=== PATIENT | female | born 1980 | race Caucasian/White ===

== ENCOUNTER 2019-03-11 07:48 | Emergency (ER) | payer SELFPAY ==
[2019-03-11 07:56] VITALS: BP 105/54; PULSE 110; RESP 20; TEMP 37.2; O2SAT 98
--- NOTE | 2019-03-11 08:16 | ED.GENADUL_ITS ---
Discharge Plan Disposition Patient Disposition: HOME Condition: Stable Discharge Details Chief Complaint: RespSymp Clinical Impression: URI (upper respiratory infection) Primary Care Provider: None,None ED Provider: Neo Whitfield Discharge Instructions Instructions: Upper Respiratory Infection (ED) Additional Instructions: Please use [id number] cough and cold medications such as Tylenol Cold and flu severe, Cepacol's medicated throat drops, or other symptomatic medications. Just take as directed on packaging. Return to the emergency department immediately for any inability to manage secretions, difficulty breathing, or further concerns. Otherwise you should go to community connections to establish insurance along with primary care follow-up if not improving Stand Alone Forms: Work Release Referrals: Primary Care Provider [Outside] (Please go to community connections to help establish primary care provider follow-up) Medical Decision Making Patient presenting to the emergency department for chief complaint of sore throat. She states that this started on Sunday and has caused some coughing due to dry throat irritation. Patient denies any chest congestion, nasal mati estion earache. She does state that she took Motrin yesterday which mildly helped. She does have to call out of work and is concerned about going back to work due to not feeling well. Physical exam shows a significantly erythematous posterior oropharynx with no tonsillary edema or exudates, submandibular and anterior cervical lymphadenopathy is noted but otherwise clear lung sounds, normal TMs, no nasal congestion, patient does have tachycardia otherwise normal cardiac exam. patient is nontoxic, but does appear moderately ill peer . Patient is very tearful and discussing testing and treatments as she states that she does not have any insurance or money to pay. 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 Patient was agreeable to rapid strep testing given work environment and mostly isolated sore throat. At this time she would prefer not to have IV fluids and further labs for also question of possible mononucleosis. Patient given oral hydration pending results. Rapid strep test was negative. Patient again was reassessed and shows no emergent airway or upper respiratory findings. With reexamination though I did hear some significant nasal congestion. Due to this I do feel that patient has upper respiratory tract infection. Patient is afebrile and again otherwise stable. Again patient states concern over cost and given no emergent findings I feel that we can take an initial conservative approach towards treatment. Discussed [id number]-ponazra therapies, significant hydration, and rest. Patient given work note and strict return precautions were discussed. HPI General Mode of arrival: ambulatory . Date/Time Provider Initiated Documentation: 03/11/19 07:49 . Limitations to Documentation: no limitations . Information obtained by: patient and RN notes reviewed . History of Present Illness 38 year old F presents to the emergency department with the chief complaint of sore throat, cold symptoms , described as severe, with intensity rated at 8. Quality is described as aching and sharp, and is localized to the mouth (sore throat). Patient started experiencing this day(s) (4) and it has been constant. No relieving factors improve symptom(s), No exacerbating factors reported . Patient did receive the following treatments prior to arrival, NSAID Related Data Allergies Allergy/AdvReac Type Severity Reaction Status Date / Time diazepam AdvReac vomiting/black Unverified 03/11/19 07:58 out hydrocodone AdvReac vomiting/b Unverified 03/11/19 07:58 lackout General Stated Complaint: RespSymp CORAL: 3 Review of Systems Constitutional Reports body ache(s), Reports chills, Reports fever(s), Denies headache(s) and Reports malaise ENT Reports as per HPI, Denies dysphagia, Denies otalgia, Denies headache(s), Reports hoarseness, Denies lip swelling, Denies mouth lesions, Denies nasal congestion, Reports odynophagia, Reports sore throat, Denies throat swelling and Denies tongue swelling Cardiovascular Denies chest pain Respiratory Denies chest congestion and Reports cough Gastrointestinal Denies dysphagia and Reports odynophagia Neurologic Denies headache(s) Allergic/Immunologic Denies lip swelling, Denies throat swelling and Denies tongue swelling [facility] Social History Smoking/Tobacco Use Status: Current every day Alcohol Intake: never Substance use type: does not use Do you feel safe at home: Yes Do you feel safe in your relationship?: Yes Exam Const General: cooperative, healthy appearing, comfortable, no acute distress and not ill appearing Orientation: alert, awake and oriented x3 HENMT Head: normal to inspection and normocephalic Ears: hearing grossly normal bilaterally, external ears normal, TM's normal bilaterally and mastoids normal General nose exam: external nose normal and nares normal Mouth: oral mucosae normal, lip normal, tongue normal, audible dysphonia (Hoarse voice), no drooling, no muffled voice and no trismus Throat: uvula midline, abnormal tonsil bilaterally erythema; no exudates and no hypertrophy and no peritonsillar masses Neck Neck: normal visual inspection, full ROM, no meningeal signs and lymphadenopathy (Submandibular, anterior cervical lymphadenopathy) Resp Effort & Inspection: normal respiratory effort, able to speak in complete sentences and no stridor Auscultation: clear to auscultation bilaterally Cardio Rate: regular rate Rhythm: regular rhythm Heart Sounds: S1 normal and S2 normal Skin General skin exam: no rashes or lesions noted Course Vital Signs Temperature 37.2 C 03/11/19 07:56 Pulse 110 H 03/11/19 07:56 Respiratory Rate 20 03/11/19 07:56 Blood Pressure 105/54 L 03/11/19 07:56 Pulse Oximetry 98 03/11/19 07:56 Temperature 37.2 C 03/11/19 07:56 Temperature Source Temporal Artery Scan 03/11/19 07:56 Pulse 110 H 03/11/19 07:56 Respiratory Rate 20 03/11/19 07:56 Respiratory Effort Non-Labored 03/11/19 07:56 Blood Pressure 105/54 L 03/11/19 07:56 Pulse Oximetry 98 03/11/19 07:56 Oxygen Delivery Method Room Air 03/11/19 07:56 Oxygen Flow Rate 0 03/11/19 07:56 Pain Level 6 03/11/19 07:56
[2019-03-11 19:06] VITALS: BP 105/54; PULSE 110; RESP 20; TEMP 37.2; O2SAT 98
== END 2019-03-11 08:55 | disposition home or self-care (01) ==
PROVIDERS: Emergency Provider Nurse Practitioner Family
DX: J06.9 Acute upper respiratory infection, unspecified (principal); F17.210 Nicotine dependence, cigarettes, uncomplicated
CPT/HCPCS: 87880; 99282

== ENCOUNTER 2019-04-13 21:14 | Emergency (ER) | payer MEDICAID, SELFPAY ==
[2019-04-13 21:30] VITALS: BP 107/61; PULSE 85; RESP 20; TEMP 37; O2SAT 98
--- NOTE | 2019-04-13 21:46 | ED.GENADUL_ITS ---
Discharge Plan Disposition Patient Disposition: HOME Condition: Improving Discharge Details Chief Complaint: Headache Clinical Impression: Cephalalgia Primary Care Provider: None,None ED Provider: Clement Rondon Home Meds and New Rx's Prescriptions: New doxycycline hyclate 100 mg capsule 100 mg PO BID 14 Days Qty: 28 RF: 0 Discharge Instructions Instructions: General Headache (ED) Additional Instructions: Our care management team will arrange an outpatient follow-up for you. As we discussed, we will empirically treat you for tickborne illness with a course of doxycycline. May use ibuprofen as needed for discomfort. Small, frequent sips of fluids to maintain hydration. Home to rest this evening. Return for any acute concern Stand Alone Forms: Work Release Medical Decision Making 38-year-old female with a day and a half of headache. It was preceded by a viral-like syndrome with fever, chills, body ache. Differential diagnosis would include tickborne illness, viral syndrome, dehydration, migraine headache. Temp 37, pulse 85, blood pressure 171/60. She has a nonfocal neurologic examination. IV placed, labs obtained, patient given fluids, parenteral medications. Of note she has a normal CBC, her AST is elevated at 72, ALT 138, alk phos 276. Total bili 0.6. Given the mild hepatitis, would consider tickborne illness and tick panel ordered. Discussed with her consideration of lumbar puncture, which she will decline and defer at this time. The patient had fairly significant improvement of her discomfort following medications. Discussed with her that I would elect to treat empirically with a course of doxycycline for tickborne illness. We will arrange for her to have a follow-up in the outpatient setting through care management. She understands the plan of care as well as home care, follow-up, return instructions. HPI General Mode of arrival: ambulatory . Date/Time Provider Initiated Documentation: 04/13/19 21:37 . Limitations to Documentation: no limitations . Information obtained by: patient . History of Present Illness 38 year old F presents to the emergency department with the chief complaint of Headache., described as moderate, Quality is described as dull and constant, and is localized to the head. Patient reports no radiation. Patient started experi encing this hour(s) and it has been constant. No relieving factors improve symptom(s), Other factors that worsen symptoms (Sensitive to) . Patient notes other (Nauseated. Had fever and chills earlier in the week. Muscles feel tense). Patient did receive the following treatments prior to arrival, NSAID Related Data Home Medications Medication Instructions Recorded Confirmed doxycycline hyclate 100 mg PO BID 14 Days #28 cap 04/13/19 Previous Rx's Medication Instructions Recorded doxycycline hyclate 100 mg PO BID 14 Days #28 cap 04/13/19 Allergies Allergy/AdvReac Type Severity Reaction Status Date / Time aspirin AdvReac Mild upset Unverified 04/13/19 21:36 stomach diazepam AdvReac vomiting/black Unverified 03/11/19 07:58 out hydrocodone AdvReac vomiting/b Unverified 03/11/19 07:58 lackout General Stated Complaint: Headache CORAL: 2 Review of Systems Review of Systems 6 systems reviewed and otherwise neg [facility] Social History Smoking/Tobacco Use Status: Current every day Alcohol Intake: never Substance use type: does not use Do you feel safe at home: Yes Do you feel safe in your relationship?: Yes Exam Narrative Exam Narrative: GEN: awake, alert, oriented 3. Pleasant, well groomed, interactive. Lying in a darkened room peer HEAD: Normocephalic, atraumatic ENT: Mucous membranes moist, oropharynx unremarkable, External ear exam unremarkable EYES: PERRL, EOMI NECK: Full ROM, no skin MICHELLE, bilateral paraspinous musculature is tender and tense. CHEST/RESP: Nontender, clear to auscultation bilateral, no wheeze/rhonchi/rales CARDIOVASCULAR: RRR, no murmur, rub alina. 2+ Rad pulse bilateral ABDOMEN: Soft, nontender, no mass. +Bowel sounds EXT: Full ROM, no edema, no rash Neuro: Grossly normal neurologic exam, conversant, interactive. Psych: Speech fluent, thoughts congruent, affect normal Course Vital Signs Temperature 37 C 04/13/19 21:30 Pulse 85 04/13/19 21:30 Respiratory Rate 20 04/13/19 21:30 Blood Pressure 107/61 04/13/19 21:30 Pulse Oximetry 98 04/13/19 21:30 Temperature 37 C 04/13/19 21:30 Temperature Source Temporal Artery Scan 04/13/19 21:30 Pulse 85 04/13/19 21:30 Respiratory Rate 20 04/13/19 21:30 Respiratory Effort Non-Labored 04/13/19 21:30 Blood Pressure 107/61 04/13/19 21:30 Blood Pressure Position Sitting 04/13/19 21:30 Pulse Oximetry 98 04/13/19 21:30 Oxygen Delivery Method Room Air 04/13/19 21:30 Oxygen Flow Rate 0 04/13/19 21:30 Pain Level 6 04/13/19 21:30
[2019-04-13] MEDS: Normal Saline 1,000 ML 1000 ML IV (22:05)
[2019-04-13] MEDS: Ondansetron 4 MG/2 ML VIAL IVP (22:07)
[2019-04-13] MEDS: Dexamethasone 10 MG/ML VIAL IVP (22:09)
[2019-04-13] MEDS: Ketorolac 30 MG/ML VIAL IVP (22:12)
[2019-04-13] MEDS: MAGNESIUM SULFATE 1 GM/100 ML BAG IVPB (22:15)
[2019-04-13 22:22] LABS: Abs Immature Grans 0.03 k/cumm (0.0-0.09); Absolute Basophil Count 0.02 k/cumm (0.0-0.2); Absolute Eosinophil Count 0.08 k/cumm (0.0-0.7); Absolute Lymphocyte Count 1.62 k/cumm (1.2-3.4); Absolute Monocyte Count 0.95 k/cumm (0.11-0.7); Absolute Neutrophil Count 6.76 k/cumm (1.2-6.7); Basophils % 0.2; Eosinophils % 0.8; HCT 40.7 % (36.0-46.0); HGB 14.1 g/dL (12.0-15.5); Immature Grans % 0.3; Lymphocytes % 17.1; Mean Corp. HGB Concentration 34.6 g/dL (32.0-36.0); Mean Corpuscular Hemoglobin 32.5 pg (27.0-33.0); Mean Corpuscular Volume 93.8 fL (80-95); Mean Platelet Volume 10.6 fL (8.0-11.0); Neutrophils % 71.6; Platelet Count 194 x1000/uL (130-400); RBC 4.34 m/cumm (4.00-5.20); RBC Distribution Width 13.2 % (11.7-14.6); White Blood Cell Count 9.46 k/cumm (4.4-10.8)
[2019-04-13 22:39] LABS: ALT 138 U/L (12-78); AST 72 U/L (15-37); Albumin 3.1 g/dL (3.4-5.0); Alkaline Phosphatase 276 U/L (46-116); Anion Gap 10.7 mmol/L (3-11); BUN 18 mg/dL (7-18); Bilirubin, Total 0.6 mg/dL (0.2-1.0); CO2 26.3 mmol/L (21.0-32.0); CREATININE 0.92 mg/dL (0.55-1.02); Calcium 8.7 mg/dL (8.5-10.1); Chloride 102 mmol/L (98-107); Glucose 90 mg/dL (70-100); Potassium 3.8 mmol/L (3.5-5.1); Sodium 139 mmol/L (136-145)
[2019-04-13] MEDS: Doxycycline Hyclate 100 MG CAP PO (23:44)
[2019-04-13 23:49] VITALS: BP 128/89; PULSE 78; RESP 16; TEMP 36.5; O2SAT 98
[2019-04-15 17:15] LABS: Anaplasma phagocytophilum Negative (Negative); B. miyamotoi PCR Negative (Negative); Babesia divergens/MO-1 Negative (Negative); Babesia duncani Negative (Negative); Babesia microti Negative (Negative); Ehrlichia chaffeensis Negative (Negative); Ehrlichia ewingii/canis Negative (Negative); Ehrlichia muris eauclairensis Negative (Negative)
[2019-04-17 13:53] LABS: Lyme Ab w Rflx to Lyme Confirm Equivocal
[2019-04-18 14:04] LABS: IgG Band(s) SEE COMMENTS kDa; IgG Immunoblot Negative; IgM Immunoblot Positive; Immunoblot Interpretation SEE COMMENTS
== END 2019-04-13 23:50 | disposition home or self-care (01) ==
PROVIDERS: Emergency Provider Emergency Medicine
DX: R51 Headache (principal); B19.9 Unspecified viral hepatitis without hepatic coma
CPT/HCPCS: 36415; 80053; 86617; 87798; 96361; 96374; 96375; 99284; 85025; 86618; J1100; J1885; J2405; J3475

== ENCOUNTER 2019-07-04 12:32 | Emergency (ER) | payer MEDICAID, SELFPAY ==
[2019-07-04 12:41] VITALS: BP 113/73; PULSE 81; RESP 16; TEMP 36.6; O2SAT 98
--- NOTE | 2019-07-04 12:55 | ED.GENADUL_ITS ---
Discharge Plan Disposition Patient Disposition: HOME Condition: Stable Discharge Details Chief Complaint: GenMedical Clinical Impression: Depression Primary Care Provider: None,None ED Provider: Clement Rondon Discharge Instructions Instructions: Depression (ED) Additional Instructions: Please follow-up with outpatient mental health services as discussed with [facility] human services. 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 Please take antibiotics as prescribed. Return for any change to mood or any acute concern. Stand Alone Forms: Work Release Medical Decision Making 38-year-old female presents from work with worsening depressive symptoms over weeks time, she is become tearful with poor sleep, denies thoughts of hurting herself or others. She was referred by [facility]. She will note that she was unable to follow-up on tickborne panel that was taken on April 13 which positive for Borrelia for which she was empirically treated at that time.. She denies any new symptoms. Medical screen examination performed otherwise unremarkable. Patient evaluated by mental health worker, plan for outpatient care established. She is stable and appropriate for trial of outpatient management. HPI General Mode of arrival: ambulatory . Date/Time Provider Initiated Documentation: 07/04/19 12:49 . Limitations to Documentation: no limitations . Information obtained by: patient . History of Present Illness 38 year old F presents to the emergency department with the chief complaint of Depression, tearful, follow-up Lyme results from the summer, described as moderate, Quality is described as constant, Patient started experiencing this day(s) and it has been constant. No relieving factors improve symptom(s), No exacerbating factors reported . Patient notes no other symptoms.. Patient did receive the following treatments prior to arrival, none Related Data Allergies Allergy/AdvReac Type Severity Reaction Status Date / Time aspirin AdvReac Mild upset Unverified 04/13/19 21:36 stomach diazepam AdvReac vomiting/black Unverified 03/11/19 07:58 out hydrocodone AdvReac vomiting/b Unverified 03/11/19 07:58 lackout General Stated Complaint: GenMedical CORAL: 4 Review of Systems Review of Systems Narrative: Denies stress, no suicidality. [facility] Social History Smoking/Tobacco Use Status: Current every day Alcohol Intake: never Substance use type: does not use Do you feel safe at home: Yes Do you feel safe in your relationship?: Yes Exam Narrative Exam Narrative: GEN: awake, alert, oriented 3. Pleasant, well groomed, interactive, tearful HEAD: Normocephalic, atraumatic ENT: Mucous membranes moist, oropharynx unremarkable, External ear exam unremarkable EYES: PERRL, EOMI NECK: Full ROM, no MICHELLE, no menigismus CHEST/RESP: Nontender, clear to auscultation bilateral, no wheeze/rhonchi/rales CARDIOVASCULAR: RRR, no murmur, rub alina. 2+ Rad pulse bilateral ABDOMEN: Soft, nontender, no mass. +Bowel sounds EXT: Full ROM, no edema, no rash Neuro: Grossly normal neurologic exam, conversant, interactive. Psych: Speech fluent, thoughts congruent, affect depressed and tearful Course Vital Signs Vital signs: Vital Signs Temperature 36.6 C 07/04/19 12:41 Pulse 81 07/04/19 12:41 Respiratory Rate 16 07/04/19 12:41 Blood Pressure 113/73 07/04/19 12:41 Pulse Oximetry 98 07/04/19 12:41 Temperature 36.6 C 07/04/19 12:41 Temperature Source Temporal Artery Scan 07/04/19 12:41 Pulse 81 07/04/19 12:41 Respiratory Rate 16 07/04/19 12:41 Blood Pressure 113/73 07/04/19 12:41 Blood Pressure Position Sitting 07/04/19 12:41 Pulse Oximetry 98 07/04/19 12:41 Oxygen Delivery Method Room Air 07/04/19 12:41 Oxygen Flow Rate 0 07/04/19 12:41 Pain Level 0 07/04/19 12:41
[2019-07-04 13:25] VITALS: RESP 18
[2019-07-04 15:51] VITALS: BP 113/73; PULSE 81; RESP 18; TEMP 36.6; O2SAT 98
== END 2019-07-04 15:53 | disposition home or self-care (01) ==
PROVIDERS: Emergency Provider Emergency Medicine
DX: F32.9 Major depressive disorder, single episode, unspecified (principal)
CPT/HCPCS: 99284

== ENCOUNTER 2020-12-07 15:32 | Outpatient (REF) | payer MEDICAID, SELFPAY ==
[2020-12-07 14:05] LABS: Anion Gap 6.9 mmol/L (3-11); BUN 14 mg/dL (7-18); CO2 26.1 mmol/L (21.0-32.0); CREATININE 0.8 mg/dL (0.55-1.02); Chloride 107 mmol/L (98-107); Glucose 90 mg/dL (74-106); Potassium 4.6 mmol/L (3.5-5.1); Sodium 140 mmol/L (136-145); TSH (W/Ref FT4) 1.28 uIU/mL (0.36-3.74)
[2020-12-07 14:32] LABS: Abs Immature Grans 0.02 10^3/uL (0.0-0.06); Absolute Basophil Count 0.03 10^3/uL (0.0-0.2); Absolute Eosinophil Count 0.07 10^3/uL (0.0-0.7); Absolute Lymphocyte Count 1.96 10^3/uL (1.2-3.4); Absolute Neutrophil Count 5.82 10^3/uL (1.2-6.7); Basophils % 0.4; Eosinophils % 0.8; HCT 43.5 % (36.0-46.0); HGB 14.5 g/dL (11.2-15.7); Immature Grans % 0.2; Lymphocytes % 23.6; MCH 32.1 pg (27.0-33.0); MCHC 33.3 % (32.0-36.0); MCV 96.2 fL (80-95); MPV 10.2 fL (8.0-11.0); Monocytes % 4.8; Neutrophils % 70.2; Nucleated RBC 0 %; Platelet Count 280 10^3/uL (130-400); RBC 4.52 10^6/uL (3.93-5.22); RDW 11.9 % (11.7-14.6); RDW-SD 42.2 fL
[2020-12-07 21:57] LABS: Estradiol 30 pg/mL (See Note)
== END 2020-12-07 15:33 | disposition home or self-care (01) ==
LOC: NCHCN 15:32
PROVIDERS: PCP Nurse Practitioner Family; Visit Provider Family Medicine
DX: R53.83 Other fatigue (principal); Z90.710 Acquired absence of both cervix and uterus
CPT/HCPCS: 80048; 82670; 84443; 85025

== ENCOUNTER 2020-12-14 02:02 | Outpatient (CLI) | payer MEDICAID, SELFPAY ==
--- NOTE | 2020-12-14 | DI.US_ITS ---
EXAM: US THYROID CLINICAL HISTORY: THYROMEGALY, E01.0. TECHNIQUE: Ultrasound thyroid performed using standard protocol. COMPARISON: No exams were available for comparison FINDINGS: ISTHMUS: 2 mm RIGHT LOBE: Size: 6.4 x 2.1 x 2.6 cm Echogenicity: Normal. Vascularity: Normal. Nodules: There is a solid hypoechoic nodule in the midpole measuring 1 x 0.9 x 1.2 cm. It has smooth margins and no echogenic foci. This is consistent with a TI-RADS level 4 nodule. There is a 2nd mi xed composition nodule in the lower pole of the right lobe measuring 2.6 x 2 x 1.9 cm. It is mainly isoechoic with smooth margins and no echogenic foci. This is consistent with a TI-RADS level 2 nodul e. LEFT LOBE: Size: 7.2 craniocaudad by 4.4 transverse by 3.6 AP cm Echogenicity: Normal. Vascularity: Normal. Nodules: There is a nodule of mixed cystic and solid composition which is mainly isoechoic and measur es 6.1 craniocaudad by 4.4 transverse by 3.6 AP cm. This is consistent with a TI-RADS level 2 nodule OTHER FINDINGS: None. IMPRESSION: Multinodular thyroid gland. DATA REPOSITORY:
== END 2020-12-14 02:22 ==
PROVIDERS: PCP Nurse Practitioner Family; Visit Provider Family Medicine
DX: E01.0 Iodine-deficiency related diffuse (endemic) goiter (principal); E04.2 Nontoxic multinodular goiter
CPT/HCPCS: 76536

== ENCOUNTER 2021-02-17 01:15 | Outpatient (CLI) | payer MEDICAID, SELFPAY ==
--- NOTE | 2021-02-17 | DI.US_ITS ---
Exam(s) US NEEDLE LOCAL OTHER WO RAD EXAM: US NEEDLE LOCAL OTHER WO RAD CLINICAL HISTORY: MULTI NODULAR THYROID, E04.2, ULTRASOUND GUIDED FINE NEEDLE ASPIRATION. COMPARISON: US US THYROID from 12/14/2020 was reviewed. TECHNIQUE: Ultrasound guidance was provided by the fish technologist for FNA of a left thyroid nodule. Radiologist not present. The supplied four images are of the right lobe.. There are no left lobe images. Apparently the alex ent terminated the examination after a single past in the left lobe and technologist informs me that left-sided images were not obtained/documented. FINDINGS: As above. IMPRESSION: Ultrasound provided for left thyroid nodule FNA, as described above. DATA REPOSITORY:
--- NOTE | 2021-02-17 07:45 | PAPNONF_PTH ---
PATIENT: Ozzy Rosales LOC: [facility] U#:[id number] AGE/SX: 40/F ROOM: RE02/17/[address]: Angel Grimes MD : [id number] BED: DIS: 02/17/2021 SPEC #: [id number] RECD: 02/17/21 12:46 STATUS: SERA REGail #: [id number] ABDI: 02/17/21 07:[address]: Angel Grimes DEPT: [facility] Cytology RECD BY: Viv Whitten ENTERED: 02/17/21 12:47 SP TYPE: ZEB MEANS DR: Antelmo Denney Tissues: 1 - BODY FLUID CYTO-FINE NEEDLE ASPIRATE-[facility] Procedures: BODY FLUID CYTO-FINE NEEDLE ASPIRATE-[facility] Comments: [id number]
--- NOTE | 2021-02-17 08:15 | W.PROCNOTE ---
Procedure Note After obtaining written consent from the patient, the patient was positioned in a supine position and prepped and draped in appropriate fashion. The ultrasound probe was used to reimage the 2 nodules on the right and the left nodule on the left. There had been no change. 1% lidocaine with 1/100,000 epinephrine was infiltrated the skin, subcutaneous tissues, and tissues overlying the thyroid on the left. A 25-gauge 1.5 inch needle was then advanced into the thyroid nodule. The patient stated that this was unbearably uncomfortable, and refused to allow any further attempts at biopsy. As such, the small amount of aspirate obtained on the first pass was placed into CytoLyt and sent to pathology. I explained to the patient that without adequate biopsy, we could not be sure of the pathology. She expressed understanding but did not feel she could tolerate any further biopsies. The wound was inspected for relative hemostasis, and then a sterile dressing applied. The patient was able to ambulate afterwards without difficulty.
== END 2021-02-17 01:35 ==
PROVIDERS: PCP Family Medicine; Visit Provider Otolaryngology
DX: E04.2 Nontoxic multinodular goiter (principal); R89.6 Abnormal cytological findings in specimens from other organs, systems and tissues
CPT/HCPCS: 10005; 76942; 88104

== ENCOUNTER 2021-03-07 10:23 | Emergency (ER) | payer MEDICAID, SELFPAY ==
[2021-03-07 10:30] VITALS: BP 124/62; PULSE 86; RESP 20; TEMP 36.5; O2SAT 99
--- NOTE | 2021-03-07 10:42 | W.ED.GENAD ---
Discharge Plan Disposition Patient Disposition: HOME Condition: Stable Discharge Details Clinical Impression: Multinodular thyroid Primary Care Provider: Antelmo Denney ED Provider: Ann-Marie Bryan Home Meds and New Rx's Prescriptions: Continued venlafaxine 150 mg capsule,extended release 24hr 150 mg PO DAILY RF: 0 Discharge Instructions Instructions: Thyroid Goiter (ED) Additional Instructions: Your sore throat and symptoms are likely associated with a large nodule which ENT at [facility] feels most consistent with a goiter. You will need follow-up with ENT at [facility] for acute continued management and likely thyroidectomy. Please follow-up with them in the next week for reevaluation. If you develop difficulty breathing, inability stay hydrated, difficulty swallowing or other new/worsening symptoms please seek care urgently once again. Otherwise, you may use Tylenol and/or ibuprofen as needed for comfort. Referrals: Antelmo Denney MD [Primary Care Provider] - Angel Grimes MD [[facility] STAFF PHYSICIAN] - Discharge Data Discharge Date/Time-TO BE ENTERED AT DEPARTURE: 03/07/21 14:57 Medical Decision Making Patient is a pleasant 40-year-old female presenting today with chief complaint of throat swelling. States that she has pain with swallowing. No difficulty breathing. No fevers or chills. Patient reports that she was recently seen by Dr. Grimes with ENT and has thyroid biopsy for thyroid nodule. Patient also reports that she has had poor dentition and has chronic pain of her dentition but no acute change in this. On exam, patient appears nontoxic. She appears well hydrated. No abnromality in posterior oropharynx. Poor dentition but no obvious evidence of acute dental infection. Handling secretions well. She has fullness to her thyroid. Structures feel midline. No crepitus. Lungs clear. No stridor. No lymphadenopathy. Reviewed pathology from biopsy dated 02/17/2021. At that time the diagnosis comment was in an otherwise unsatisfactory aspirate, there is a very rare group of poorly preserved but atypical follicular cells with oval nuclei irregular nuclear membranes and nuclear grooves. The background consists of proteinaceous debris and few sites. Suggest repeat fine-needle aspiration with onset evaluation and possible Afirma testing.. Concerned that this may be enlarging. Rapid stress testing negative. Will obtain CT of neck. Will also obtain baseline labs and monospot testing for other possible sources of symptoms. Patient given IV acetaminophen, reports feeling improved. FINDINGS: Nasopharynx: Unremarkable. Oropharynx: Unremarkable. No significant tonsillar enlargement. Hypopharynx: Unremarkable. Larynx: Unremarkable. Normal epiglottis. Retropharyngeal space: Unremarkable. Submandibular/Parotid glands: Normal. Glands are normal in size. Thyroid: Inhomogeneous left thyroid nodule 6 x 4 x 3.6 cm. There is a subcentimeter focus of calcification associated with the nodule and the nodule displaces the trachea to the right. In right thyroid there is a similar nodule measuring about 2.1 x 1.9 x 2.2 cm. Lymph nodes: Unremarkable. No lymphadenopathy. Trachea: Mildly narrowed at the point where there is mass effect from the right thyroid nodule. Lungs: Unremarkable as visualized. Bones/joints: Disc space narrowing and degenerative spurring C4 through C6/7. There are posterior disc osteophyte complexes at C5/6 and C6/7, slightly eccentric to the left and associated with possible disc protrusions narrowing the AP dimension of the central canal to as little as about 5.5 mm such as at C6/7. Soft tissues: Unremarkable. No significant soft tissue swelling. Unremarkable esophagus. IMPRESSION: 1. No neck masses or acute disease. 2. Known thyromegaly and thyroid nodules. The CT study shows mass effect upon the trachea and mild narrowing. 3. Lower cervical discogenic degenerative disease and with multilevel central canal stenosis which may be clinically significant, most suspicious at C6/7. Neurologic assessment and consideration for follow-up imaging such as with MRI is recommended. Images pushed to [facility]. Requested consult with their ENT providers. Labs reviewed, no signficiant abnormality. Mora negative. Discussed these findings with the patient. She is now reporting that when she changes her clothes and puts her arm over her head it completely occludes her airway. However, she continues to deny any shortness of breath or difficulty breathing when at rest. Consulted with Dr. Hou with ENT at [facility]. She was able to review the images and discuss case. She advised appears like standard goiter on imaging but cannot rule out malignancy. Not substernal. She states not significant decrease in tracheal size but notes it to be more cylindrical. She will review further. She advised that patient will likely need thyroidectomy but that this is not typically not done emergently. Dr. Hou called back, advised f/u [facility] ENT at [facility] on outpatient basis. . They advised that we place referral. She will need scope and subsequent thyroidectomy. Recommended pain management. Advised steroids would not likely be of benefit. If she has progression of symptoms would recommend more urgent evaluation. Discussed recommendations with the patient. She will encourage hydration. Use OTC mediations to help with pain management. Strict return precautions discussed. Referral to ENT placed. Advised she should be reevaluated in [facility] next week. All of her quesitons and concerns were addressed, she is in agreement with this plan. HPI General Mode of arrival: ambulatory. Date/Time Provider Initiated Documentation: 03/07/21 10:42. Limitations to Documentation: no limitations. Information obtained by: patient, RN notes reviewed and old records reviewed. History of Present Illness 40 year old F presents to the emergency department with the chief complaint of neck tightness, pain with swallowing, described as moderate, with intensity rated at 7. Quality is described as aching, and is localized to the neck. Patient reports no radiation. Patient started experiencing this day(s) (3) and it has been constant. No relieving factors improve symptom(s), Eating worsens symptoms . Patient notes no other symptoms.. Patient did receive the following treatments prior to arrival, none Related Data Home Medications Medication Instructions Recorded Confirmed venlafaxine 150 mg PO DAILY 03/07/21 03/07/21 Allergies Allergy/AdvReac Type Severity Reaction Status Date / Time aspirin AdvReac Mild upset Unverified 03/07/21 10:33 stomach diazepam AdvReac vomiting/black Unverified 03/07/21 10:33 out hydrocodone AdvReac vomiting/b Unverified 03/07/21 10:33 lackout General Stated Complaint: Sorethroat CORAL: 3 Review of Systems Constitutional Constitutional: Reports as per HPI, Denies chills, Reports fatigue, Denies fever(s) and Denies headache(s) Eyes Eyes: Reports as per HPI, Denies eye discharge and Denies irritation ENT Ears, Nose, Mouth, and Throat: Reports as per HPI, Denies dry mouth, Denies otalgia, Denies headache(s), Denies sinus pain, Reports sore throat, Reports throat swelling and Denies tongue swelling Cardiovascular Cardiovascular: Reports as per HPI, Denies chest pain and Denies dyspnea Respiratory Respiratory: Reports as per HPI, Reports cough (x2 weeks), Denies pain on inspiration, Denies dyspnea and Denies stridor Gastrointestinal Gastrointestinal: Reports as per HPI, Denies abdominal pain, Denies change in bowel habits, Denies nausea and Denies vomiting Integumentary/Breasts Skin/Breast: Reports as per HPI and Denies rash Neurologic Neurologic: Reports as per HPI and Denies headache(s) Endocrine Endocrine: Reports fatigue Allergic/Immunologic Allergic/Immunologic: Reports throat swelling and Denies tongue swelling [facility] Social History Smoking/Tobacco Use Status: Current every day Smoking risk assessment performed?: Yes Alcohol Intake: never Substance use type: does not use Do you feel safe at home: Yes Do you feel safe in your relationship?: Yes Exam Const General: cooperative, comfortable, no acute distress, well developed, well groomed and ill appearing acutely Nutritional Appearance: average body habitus and well nourished Orientation: alert and awake [facility] Head: normal to inspection, normocephalic and atraumatic Ears: hearing grossly normal bilaterally, external ears normal and TM's normal bilaterally General nose exam: external nose normal and nares normal Face and sinus: normal facial exam, sinuses nontender and face symmetric Mouth: oral mucosae normal, lip normal, tongue normal, oropharynx normal and moist mucous membranes Teeth and gingiva: dentition normal Throat: posterior oropharynx normal, tonsils normal and uvula midline Eyes General: appearance normal, both eyes and all related structures Neck Neck: full ROM, no lymphadenopathy and no meningeal signs Thyroid: abnormal thyroid and diffusely enlarged Resp Effort & Inspection: normal respiratory effort, able to speak in complete sentences, no respiratory distress and no stridor Auscultation: clear to auscultation bilaterally, no rales, no rhonchi and no wheezes Cardio Rate: regular rate Rhythm: regular rhythm Heart Sounds: S1 normal and S2 normal Skin General skin exam: no rashes or lesions noted Neuro General: patient alert and patient awake Cognition: normal cognition Speech: speech normal Gait: normal gait Psych Appearance: grossly normal and well kempt Mental Status: mental status grossly normal Speech and Movement: speech and movement normal Course Vital Signs Vital signs: Vital Signs Temperature 36.5 C 03/07/21 10:30 Pulse 86 03/07/21 10:30 Respiratory Rate 20 03/07/21 10:30 Blood Pressure 124/62 03/07/21 10:30 Pulse Oximetry 99 03/07/21 10:30 Temperature 36.5 C 03/07/21 10:30 Temperature Source Skin 03/07/21 10:30 Pulse 86 03/07/21 10:30 Respiratory Rate 20 03/07/21 10:30 Respiratory Effort Non-Labored 03/07/21 10:34 Blood Pressure 124/62 03/07/21 10:30 Blood Pressure Position Sitting 03/07/21 10:30 Pulse Oximetry 99 03/07/21 10:30 Oxygen Delivery Method Room Air 03/07/21 10:30 Oxygen Flow Rate 0 03/07/21 10:30 Pain Level 7 03/07/21 10:30
--- NOTE | 2021-03-07 11:00 | DI.CT_ITS ---
Exam(s) CT NECK W EXAM: CT NECK W CLINICAL HISTORY: pain with swallowing, swelling. TECHNIQUE: Imaging Protocol: Axial computed tomography images with coronal and sagittal reformatted images were created and reviewed. CONTRAST MATERIAL: Intravenous: Omnipaque 350 Contrast volume:100 mL COMPARISON: US US THYROID from 12/14/2020 FINDINGS: Orbits and orbital soft tissues: Within normal limits. Visualized paranasal sinuses: Within normal limits. Nasopharynx: Within normal limits. Oropharynx: Within normal limits. Hypopharynx: Within normal limits. Larynx: Within normal limits. Retropharyngeal space: Within normal limits. Parotids/submandibular: Within normal limits. Thyroid gland: The thyroid gland is enlarged. There are multiple bilateral thyroid nodules. The la rgest nodule is seen on the left and measures 6 x 4 x 4 cm. There is a calcification associated with the left thyroid nodule. The left thyroid nodule narrows the trachea and displaces the trachea to t he right. There is a 2 x 2 x 2.2 cm nodule in the right thyroid gland. Lymphadenopathy: There is scattered lymph nodes seen along the level one to level three all measurin g less than 8 mm in short axis diameter which are physiologic in nature. Trachea: Please see the above section on the thyroid gland. Lung apices: Within normal limits. Bones: Degenerative changes are seen in the cervical spine from C4-5 through C6-C7. There is resulta nt central spinal canal and neural foraminal stenosis at C5-6 and C6-C7. Neural foraminal stenosis i s seen at C4-5. There is straightening of the normal cervical lordosis. Carotids/Jugular: Within normal limits. Soft tissues: Within normal limits. IMPRESSION: 1. Thyromegaly and multinodular thyroid gland. The left thyroid nodule narrows the trachea displacin g it to the right. 2. Multilevel cervical spondylosis. If further imaging is warranted, an MRI may be obtained. 3. No acute abnormality in the neck. Incidental Findings RADIATION DOSE DELIVERED: 556.18mGy.cm Total DLP 556.18mGy.cm Total DLP DATA REPOSITORY: All CT scans at this facility are submitted to the National Radiology Data Registry (NRDR) Dose Index Registry (DIR) with the [employer] ([employer]). RADIATION OPTIMIZATION: All CT scans at this facility use at least one of these dose optimization te chniques: automated exposure control; mA and/or kV adjustment per patient size (includes targeted exa ms where dose is matched to clinical indication); or iterative reconstruction.
[2021-03-07] MEDS: Normal Saline Flush 10 ML SYR IVP (11:22)
[2021-03-07] MEDS: Normal Saline 1,000 ML 1000 ML IV (11:22)
[2021-03-07] MEDS: ACETAMINOPHEN 1,000 MG/100 ML BTL 400 MG IVPB (11:22)
[2021-03-07 11:27] LABS: Abs Immature Grans 0.03 10^3/uL (0.0-0.06); Absolute Basophil Count 0.04 10^3/uL (0.0-0.2); Absolute Eosinophil Count 0.16 10^3/uL (0.0-0.7); Absolute Lymphocyte Count 2.29 10^3/uL (1.2-3.4); Absolute Monocyte Count 0.46 10^3/uL (0.1-0.8); Absolute Neutrophil Count 5.07 10^3/uL (1.2-6.7); Basophils % 0.5; HCT 45.2 % (36.0-46.0); HGB 15.2 g/dL (11.2-15.7); Immature Grans % 0.4; Lymphocytes % 28.4; MCH 32.3 pg (27.0-33.0); MCHC 33.6 % (32.0-36.0); MCV 96.2 fL (80-95); MPV 9.3 fL (8.0-11.0); Monocytes % 5.7; Nucleated RBC 0 %; Platelet Count 274 10^3/uL (130-400); RDW 12.1 % (11.7-14.6); RDW-SD 43.1 fL; WBC 8.05 10^3/uL (4.4-10.8)
[2021-03-07 11:38] LABS: Mono Screening Negative (Negative)
[2021-03-07 11:39] LABS: ALT 59 U/L (14-59); AST 23 U/L (15-37); Albumin 3.5 g/dL (3.4-5.0); Alkaline Phosphatase 85 U/L (46-116); Anion Gap 7.7 mmol/L (3-11); BUN 10 mg/dL (7-18); Bilirubin, Total 0.5 mg/dL (0.2-1.0); CO2 28.3 mmol/L (21.0-32.0); CREATININE 0.9 mg/dL (0.55-1.02); Chloride 105 mmol/L (98-107); Glucose 86 mg/dL (74-106); Potassium 4.3 mmol/L (3.5-5.1); Sodium 141 mmol/L (136-145); Total Protein 7.1 g/dL (6.4-8.2)
[2021-03-07 12:53] VITALS: BP 100/49; PULSE 79; RESP 16; TEMP 36.7; O2SAT 97
--- NOTE | 2021-03-07 13:19 | DI.VRAD_ITS ---
PROCEDURE INFORMATION: Exam: CT Neck With Contrast Exam date and time: 03/07/2021 11:04 AM Age: 40 years old Clinical indication: Other: Pain with swallowing, swelling TECHNIQUE: Imaging protocol: Computed tomography images of the neck with contrast. Radiation optimization: All CT scans at this facility use at least one of these dose optimization techniques: automated exposure control; mA and/or kV adjustment per patient size (includes targeted exams where dose is matched to clinical indication); or iterative reconstruction. Contrast material: OMNIPQUE; Contrast volume: 350 ml; Contrast route: INTRAVENOUS (IV); COMPARISON: SD US THYROID 12/14/2020 1:54 PM FINDINGS: Nasopharynx: Unremarkable. Oropharynx: Unremarkable. No significant tonsillar enlargement. Hypopharynx: Unremarkable. Larynx: Unremarkable. Normal epiglottis. Retropharyngeal space: Unremarkable. Submandibular/Parotid glands: Normal. Glands are normal in size. Thyroid: Inhomogeneous left thyroid nodule 6 x 4 x 3.6 cm. There is a subcentimeter focus of calcification associated with the nodule and the nodule displaces the trachea to the right. In right thyroid there is a similar nodule measuring about 2.1 x 1.9 x 2.2 cm. Lymph nodes: Unremarkable. No lymphadenopathy. Trachea: Mildly narrowed at the point where there is mass effect from the right thyroid nodule. Lungs: Unremarkable as visualized. Bones/joints: Disc space narrowing and degenerative spurring C4 through C6/7. There are posterior disc osteophyte complexes at C5/6 and C6/7, slightly eccentric to the left and associated with possible disc protrusions narrowing the AP dimension of the central canal to as little as about 5.5 mm such as at C6/7. Soft tissues: Unremarkable. No significant soft tissue swelling. Unremarkable esophagus. IMPRESSION: 1. No neck masses or acute disease. 2. Known thyromegaly and thyroid nodules. The CT study shows mass effect upon the trachea and mild narrowing. 3. Lower cervical discogenic degenerative disease and with multilevel central canal stenosis which may be clinically significant, most suspicious at C6/7. Neurologic assessment and consideration for follow-up imaging such as with MRI is recommended. Dictated and Authenticated by: Scout Steinberg MD. Ordering:PARKER Jacobsen MD
[2021-03-07 14:08] VITALS: BP 104/55; PULSE 69; RESP 20; O2SAT 100
== END 2021-03-07 14:57 | disposition home or self-care (01) ==
PROVIDERS: Emergency Provider Physician Assistant; PCP Family Medicine
DX: E04.2 Nontoxic multinodular goiter (principal); R13.10 Dysphagia, unspecified
CPT/HCPCS: 36415; 70491; 80053; 87880; 96361; 96365; 99285; 85025; 86308; 87081; 99284; J0131

== ENCOUNTER 2022-03-14 21:40 | Outpatient (REF) | payer MEDICAID, SELFPAY ==
[2022-03-14 14:50] LABS: TSH (W/Ref FT4) 3.01 uIU/mL (0.36-3.74)
[2022-03-15 10:50] LABS: Hepatitis C Ab w Rflx HCV PCR Negative (Negative)
[2022-03-15 11:33] LABS: HIV-1/2 Ag & Ab Screen Negative (Negative)
== END 2022-03-14 21:41 | disposition home or self-care (01) ==
LOC: NCHCN 21:40
PROVIDERS: PCP Family Medicine; Visit Provider Family Medicine
DX: Z11.4 Encounter for screening for human immunodeficiency virus [HIV] (principal); Z11.59 Encounter for screening for other viral diseases; E07.9 Disorder of thyroid, unspecified
CPT/HCPCS: 86803; 87389; 84443

== ENCOUNTER 2022-04-27 08:42 | Emergency (ER) | payer MEDICAID, SELFPAY ==
--- NOTE | 2022-04-27 08:45 | DI.RAD_ITS ---
Exam(s) XR FOOT LT COMPLETE EXAM: XR FOOT LT COMPLETE CLINICAL HISTORY: Swelling, Pain. TECHNIQUE: 2D digital imaging was performed. COMPARISON: No exams were available for comparison FINDINGS: 3 views No evidence of fracture nor diastasis of the Lisfranc joint. Bone density normal. No osseous lesion s nor erosions. Small inferior calcaneal spur noted. IMPRESSION: No fracture. DATA REPOSITORY: RADIATION DOSE DELIVERED:
[2022-04-27 08:49] VITALS: BP 119/75; PULSE 74; RESP 18; TEMP 36.8; O2SAT 99
--- NOTE | 2022-04-27 08:58 | W.ED.GENAD ---
Discharge Plan Disposition Patient Disposition: HOME Condition: Stable Discharge Details Clinical Impression: Swelling of first metatarsophalangeal (MTP) joint of left foot Primary Care Provider: Antelmo Denney ED Provider: Coreen Bowen Home Meds and New Rx's Prescriptions: No Action venlafaxine 150 mg capsule,extended release 24hr 150 mg PO DAILY Label Comments: TAKE 1 CAPSULE BY MOUTH EVERY MORNING levothyroxine 150 mcg tablet 150 mcg PO DAILY Label Comments: Take 1 tablet by mouth once a day Take 1 tablet by mouth daily amoxicillin 500 mg capsule 500 mg PO Q8H Label Comments: TAKE ONE CAPSUEL BY MOUTH EVERY 8 HOURS UNTIL GONE Discharge Instructions Instructions: Osteoarthritis (ED) Additional Instructions: X-rays at this time are negative. It does appear you have some arthritis type changes noted to the joint great toe. Rest, ice, compression, elevation. Please ice the foot 3 times daily for the next 3 to 5 days keep it elevated when sitting or lying down. Use the postop shoe as needed for comfort. Weightbearing as tolerated. Please take Tylenol or Ibuprofen with food every 4-6 hours as needed for pain and swelling. Follow up with primary care provider in 3-5 days. Return to ED sooner if any worsening or concerns. Increase oral fluids. Stand Alone Forms: Work Release Referrals: Antelmo Denney MD [Primary Care Provider] - 5 days Medical Decision Making 41-year-old female presents to the ER with chief complaint of left great toe pain and swelling which has worsened over the last week. She reports that approximately a month ago she injured her foot and was never seen by. She reports that she started a new job and has been on her feet a lot more and has noticed increased pain and swelling. X-ray ordered. Deferred diagnosis includes but not limited to occult fracture, sprain, arthritis, gout. Discussed results with patient who verbalized understanding discussed home care she declined a postop shoe at this time. This text was generated using [employer] ([employer]ation system, please disregard any oddities of phrase or misspellings. Imaging Data Radiologic Study: Imaging: X-Ray Radiologist's impression: EXAM: XR FOOT LT COMPLETE CLINICAL HISTORY: Swelling, Pain. TECHNIQUE: 2D digital imaging was performed. COMPARISON: No exams were available for comparison FINDINGS: 3 views No evidence of fracture nor diastasis of the Lisfranc joint. Bone density normal. No osseous lesions nor erosions. Small inferior calcaneal spur noted. IMPRESSION: No fracture. HPI General Mode of arrival: ambulatory. Date/Time Provider Initiated Documentation: 04/27/22 08:44. Limitations to Documentation: no limitations. Information obtained by: patient, RN notes reviewed and old records reviewed. HPI Narrative: 41-year-old female presents to the ER with chief complaint of left great toe pain and swelling which has worsened over the last week. She reports that approximately a month ago she injured her foot and was never seen by. She reports that she started a new job and has been on her feet a lot more and has noticed increased pain and swelling. She does have worsening pain and swelling noted at the first great toe MPJ. No significant erythema or warmth. No other complaints or associated symptoms at this time. She does have a past medical history of hypothyroidism. She has not taken any medications prior to arrival. Related Data Home Medications Medication Instructions Recorded Confirmed venlafaxine 150 mg 150 mg PO DAILY 03/07/21 04/27/22 capsule,extended release 24 hr amoxicillin 500 mg capsule 500 mg PO Q8H 04/27/22 04/27/22 levothyroxine 150 mcg tablet 150 mcg PO DAILY 04/27/22 04/27/22 Allergies Allergy/AdvReac Type Severity Reaction Status Date / Time aspirin AdvReac Mild upset Unverified 04/27/22 08:53 stomach diazepam AdvReac vomiting/black Unverified 04/27/22 08:53 out hydrocodone AdvReac vomiting/b Unverified 04/27/22 08:53 lackout General Stated Complaint: Orthopedic CORAL: 4 Review of Systems Musculoskeletal Musculoskeletal: Reports as per HPI, Reports arthralgias and Reports joint swelling PFSH All Active Problems (Updated 04/27/22 @ 09:26 by Coreen Bowen NP) Swelling of first metatarsophalangeal (MTP) joint of left foot (Acute) Multinodular thyroid (Acute) Social History Smoking/Tobacco Use Status: Current every day Tobacco Type: cigarettes Smoking risk assessment performed?: Yes Alcohol Intake: current Alcohol Intake frequency: holidays/special occasions only Drug use: Never Substance use type: does not use Do you feel safe at home: Yes Do you feel safe in your relationship?: Yes Exam Extrem Left lower extremity: foot Details: normal capillary refill, normal to inspection, tenderness Location: of the great toe Location: at the MTP joint and no edema; no unusual warmth Course Vital Signs Vital signs: Vital Signs Temperature 36.8 C 04/27/22 08:49 Pulse 74 04/27/22 08:49 Respiratory Rate 18 04/27/22 08:49 Blood Pressure 119/75 04/27/22 08:49 Pulse Oximetry 99 04/27/22 08:49 Temperature 36.8 C 04/27/22 08:49 Temperature Source Temporal Artery Scan 04/27/22 08:49 Pulse 74 04/27/22 08:49 Respiratory Rate 18 04/27/22 08:49 Respiratory Effort Non-Labored 04/27/22 08:55 Blood Pressure 119/75 04/27/22 08:49 Blood Pressure Position Sitting 04/27/22 08:49 Pulse Oximetry 99 04/27/22 08:49 Oxygen Delivery Method Room Air 04/27/22 08:49 Oxygen Flow Rate 0 04/27/22 08:49
--- NOTE | 2022-04-27 09:50 | PDOC.ERCMPRO ---
- If Service Date Differs Date of service: 04/27/22 Time of Service: 09:50 Care Management Progress Note SBIRT screen positive for nicotine. No other substance use or mental health symptoms endorsed. Pt states she has tried repeatedly to quit smoking without success. pt was supplied with resources for smoking cessation including hypnotherapy online and coached to access resoures.
[2022-04-27] MEDS: Ibuprofen 600 MG TAB PO (10:00)
== END 2022-04-27 10:02 | disposition home or self-care (01) ==
PROVIDERS: Emergency Provider Registered Nurse Emergency; PCP Family Medicine
DX: M25.475 Effusion, left foot (principal); F17.210 Nicotine dependence, cigarettes, uncomplicated
CPT/HCPCS: 99283; 73630; 99282

== ENCOUNTER 2022-08-08 19:58 | Emergency (ER) | payer MEDICAID, SELFPAY ==
[2022-08-08 20:09] VITALS: BP 111/64; PULSE 72; RESP 20; TEMP 36.9; O2SAT 98
--- NOTE | 2022-08-08 21:20 | ED.GENADUL_ITS ---
Discharge Plan Disposition Patient Disposition: HOME Condition: Improving Discharge Details Clinical Impression: Pain, dental Primary Care Provider: Antelmo Denney ED Provider: Kory Singh Home Meds and New Rx's Prescriptions: New amoxicillin-pot clavulanate 875-125 mg tablet 1 tab PO BID 7 Days Qty: 14 0RF No Action venlafaxine 150 mg capsule,extended release 24hr 150 mg PO DAILY Label Comments: TAKE 1 CAPSULE BY MOUTH EVERY MORNING levothyroxine 150 mcg tablet 150 mcg PO DAILY Label Comments: Take 1 tablet by mouth once a day Take 1 tablet by mouth daily amoxicillin 500 mg capsule 500 mg PO Q8H Label Comments: TAKE ONE CAPSUEL BY MOUTH EVERY 8 HOURS UNTIL GONE Discharge Instructions Instructions: Toothache (ED) Additional Instructions: Please follow-up with your dentist. Please return to the emergency department for any worsening symptoms. Medical Decision Making 41-year-old female presents after recent dental extraction right upper tooth, pain at site, radiating into right face, afebrile nontoxic tolerating secretions normal voice, no evidence of periapical abscess or deep space infection of head or neck. No overlying skin changes of the maxillary region. Patient refusing local bupivacaine or lidocaine injection to anesthetize region. Will give IM Toradol for anti-inflammatory effects. We will also transition patient to Augmentin given history of facial cellulitis and worsening pain despite 4 days of amoxicillin. We will give home care instructions and return precautions. 22: 20 patient resting comfortably feeling much better after Toradol. Have transition patient to Augmentin. Patient will follow up with her dentist. Given strict return precautions for worsening symptoms HPI General Date/Time Provider Initiated Documentation: 08/08/22 20:27 . HPI Narrative: 41-year-old female recent tooth extraction, placed on amoxicillin presents with tooth pain radiating into her right face. Related Data Home Medications Medication Instructions Recorded Confirmed venlafaxine 150 mg 150 mg PO DAILY 03/07/21 08/08/22 capsule,extended release 24 hr amoxicillin 500 mg capsule 500 mg PO Q8H 04/27/22 08/08/22 levothyroxine 150 mcg tablet 150 mcg PO DAILY 04/27/22 08/08/22 amoxicillin 875 mg-potassium 1 tab PO BID 7 days #14 tabs 08/08/22 clavulanate 125 mg tablet Previous Rx's Medication Instructions Recorded amoxicillin 875 mg-potassium 1 tab PO BID 7 days #14 tabs 08/08/22 clavulanate 125 mg tablet Allergies Allergy/AdvReac Type Severity Reaction Status Date / Time aspirin AdvReac Mild upset Unverified 08/08/22 20:14 stomach diazepam AdvReac vomiting/black Unverified 08/08/22 20:14 out hydrocodone AdvReac vomiting/b Unverified 08/08/22 20:14 lackout General Stated Complaint: DentalOral CORAL: 4 Review of Systems Narrative: Review of Systems Constitutional: negative Eyes: negative ENT: Dental pain Cardiovascular: negative Respiratory: negative Gastrointestinal: negative : negative Musculoskeletal: negative Skin: negative Neurologic: negative Psych: negative PFSH All Active Problems (Updated 08/08/22 @ 22:21 by Kory Singh MD) Pain, dental (Acute) Multinodular thyroid (Acute) Social History Smoking/Tobacco Use Status: Current every day Tobacco Type: cigarettes Smoking risk assessment performed?: Yes Alcohol Intake: current Alcohol Intake frequency: holidays/special occasions only Drug use: Never Substance use type: does not use Do you feel safe at home: Yes Do you feel safe in your relationship?: Yes Exam Narrative Exam Narrative: Physical Examination General: alert, awake, cooperative, resting comfortably, no acute distress HEENT: Recent extraction of upper right tooth, no palpable periapical abscess, no fluctuance around gum or face, no erythema of skin in maxillary region; normocephalic, atraumatic; PERRL, EOM intact, conjunctiva normal; no nasal discharge; moist mucous membranes, oral and pharyngeal mucosa normal, tolerating secretions Neck: supple, trachea midline; full ROM Chest: normal to inspection Respiratory: normal respiratory effort, speaking in full sentences, clear to auscultation, no wheezing, rales or rhonchi Cardiac: regular rate, regular rhythm, S1S2 intact, no murmurs rubs or gallops GI: abdomen soft, non-tender, non-distended; no palpable mass or hepatosplenomegaly Skin: no lesions, rashes or trauma appreciated Neuro: AAOx3, normal speech, moving all extremities Psych: Appropriate mood and affect Course Vital Signs Vital signs: Vital Signs Temperature 36.9 C 08/08/22 20:09 Pulse 72 08/08/22 20:09 Respiratory Rate 20 08/08/22 20:09 Blood Pressure 111/64 08/08/22 20:09 Pulse Oximetry 98 08/08/22 20:09 Temperature 36.9 C 08/08/22 20:09 Temperature Source Temporal Artery Scan 08/08/22 20:09 Pulse 72 08/08/22 20:09 Respiratory Rate 20 08/08/22 20:09 Blood Pressure 111/64 08/08/22 20:09 Blood Pressure Position Sitting 08/08/22 20:09 Pulse Oximetry 98 08/08/22 20:09 Oxygen Delivery Method Room Air 08/08/22 20:09 Oxygen Flow Rate 0 08/08/22 20:09 Pain Level 8 08/08/22 20:09
[2022-08-08] MEDS: Ketorolac 15 MG/ML VIAL IM (21:28)
[2022-08-08] MEDS: Amoxicillin 875/Clav. 125 TAB PO (21:28)
[2022-08-08 22:42] VITALS: BP 110/60; PULSE 72; RESP 14; O2SAT 98
== END 2022-08-08 22:43 | disposition home or self-care (01) ==
PROVIDERS: Emergency Provider Emergency Medicine; PCP Family Medicine
DX: K08.89 Other specified disorders of teeth and supporting structures (principal)
CPT/HCPCS: 96372; 99284; 99283; J1885

== ENCOUNTER 2022-11-01 14:54 | Outpatient (REF) | payer MEDICAID, SELFPAY ==
[2022-11-01 16:27] LABS: TSH (W/Ref FT4) 2.24 uIU/mL (0.36-3.74)
[2022-11-01 16:39] LABS: Vitamin D 25 Total 29.9 ng/mL (30-100)
== END 2022-11-01 14:55 | disposition home or self-care (01) ==
LOC: NCHCN 14:54
PROVIDERS: PCP Family Medicine; Visit Provider Family Medicine
DX: E89.0 Postprocedural hypothyroidism (principal); E55.9 Vitamin D deficiency, unspecified
CPT/HCPCS: 82306; 84443

== ENCOUNTER 2022-12-06 14:54 | Emergency (ER) | payer MEDICAID, SELFPAY ==
[2022-12-06 15:07] VITALS: BP 120/62; PULSE 77; RESP 16; TEMP 36.8; O2SAT 99
--- NOTE | 2022-12-06 15:48 | ED.GENADUL_ITS ---
Discharge Plan Disposition Patient Disposition: Home Condition: Stable Discharge Details Clinical Impression: Cellulitis Primary Care Provider: Antelmo Denney ED Provider: Kory Singh Home Meds and New Rx's Prescriptions: New clindamycin HCl 300 mg capsule 300 mg PO QID 10 Days Qty: 40 0RF No Action venlafaxine 150 mg capsule,extended release 24hr 150 mg PO DAILY Patient Comments: TAKE 1 CAPSULE BY MOUTH EVERY MORNING levothyroxine 150 mcg tablet 150 mcg PO DAILY Patient Comments: Take 1 tablet by mouth once a day Take 1 tablet by mouth daily amoxicillin 500 mg capsule 500 mg PO Q8H Patient Comments: TAKE ONE CAPSUEL BY MOUTH EVERY 8 HOURS UNTIL GONE Discharge Instructions Instructions: Cellulitis (ED) Additional Instructions: Please return to the emergency department if swelling pain redness worsen or if you develop fevers chills nausea vomiting lightheadedness or other abnormal symptoms. Take medications as prescribed. Please follow-up with your primary care physician otherwise. Stand Alone Forms: Work Release Medical Decision Making 42-year-old female presents with 1 day of painful swelling to right forearm, central shallow ulceration approximately 1 cm in diameter with surrounding warmth and induration and erythema with a diameter of approximately 5 cm. Has worsened over the last 24 hours. Patient is afebrile nontachycardic not hypotensive nontoxic. Neurovascular exam of limb intact. Likely cellulitis from possible skin abrasion lower suspicion for insect bite, patient has multiple areas of prior healing scabs from skin picking. Given nonfluctuant nature of wound lower suspicion for cellulitis. Will dose clindamycin to cover MRSA and strep we will also give IM dose of Toradol for analgesia anti- inflammatory. Home care instructions and strict return precautions to be given to patient. HPI General Date/Time Provider Initiated Documentation: 12/06/22 15:36 . HPI Narrative: 42-year-old female presents with 1 day of pain and swelling to the left forearm, patient noticed a bite/abrasion to her forearm and has had progressive redness and swelling in the area since then. Does scratch and skin pick when she gets anxious however she denies that this is from a scratch/skin picking, believes she may have been bitten by a spider. Related Data Home Medications Medication Instructions Recorded Confirmed venlafaxine 150 mg 150 mg PO DAILY 03/07/21 08/08/22 capsule,extended release 24 hr amoxicillin 500 mg capsule 500 mg PO Q8H 04/27/22 08/08/22 levothyroxine 150 mcg tablet 150 mcg PO DAILY 04/27/22 08/08/22 clindamycin HCl 300 mg capsule 300 mg PO QID 10 days #40 caps 12/06/22 Previous Rx's Medication Instructions Recorded clindamycin HCl 300 mg capsule 300 mg PO QID 10 days #40 caps 12/06/22 Allergies Allergy/AdvReac Type Severity Reaction Status Date / Time aspirin AdvReac Mild upset Unverified 08/08/22 20:14 stomach diazepam AdvReac vomiting/black Unverified 08/08/22 20:14 out hydrocodone AdvReac vomiting/b Unverified 08/08/22 20:14 lackout General Stated Complaint: GenMedical CORAL: 3 Review of Systems Narrative: Review of Systems Constitutional: negative Eyes: negative ENT: negative Cardiovascular: negative Respiratory: negative Gastrointestinal: negative : negative Musculoskeletal: negative Skin: Cellulitis Neurologic: negative Psych: negative PFSH All Active Problems (Updated 12/06/22 @ 15:53 by Kory Singh MD) Cellulitis (Acute) Multinodular thyroid (Acute) Social History Smoking/Tobacco Use Status: Current every day Tobacco Type: cigarettes Smoking risk assessment performed?: Yes Alcohol Intake: current Alcohol Intake frequency: holidays/special occasions only Drug use: Never Substance use type: does not use Do you feel safe at home: Yes Do you feel safe in your relationship?: Yes Exam Narrative Exam Narrative: Physical Examination General: alert, awake, cooperative, resting comfortably, no acute distress HEENT: normocephalic, atraumatic; PERRL, EOM intact, conjunctiva normal; no nasal discharge; moist mucous membranes, oral and pharyngeal mucosa normal, tolerating secretions Neck: supple, trachea midline; full ROM Chest: normal to inspection Respiratory: normal respiratory effort, speaking in full sentences, clear to auscultation, no wheezing, rales or rhonchi Cardiac: regular rate, regular rhythm, S1S2 intact, no murmurs rubs or gallops GI: abdomen soft, non-tender, non-distended; no palpable mass or hepatosplenomegaly Skin: Warm indurated area of skin to left forearm with central shallow ulceration approximately 1 cm in length, nonfluctuant, no lymphangitic streaking noted; multiple prior healed areas of skin picking/scratches and scabs Neuro: AAOx3, normal speech, moving all extremities Extremities: Full flexion extension of fingers, range of motion of wrist and elbow intact, soft compartments warm well perfused extremity Psych: Appropriate mood and affect Course Vital Signs Vital signs: Vital Signs Temperature 36.8 C 12/06/22 15:07 Pulse 77 12/06/22 15:07 Respiratory Rate 16 12/06/22 15:07 Blood Pressure 120/62 12/06/22 15:07 Pulse Oximetry 99 12/06/22 15:07 Temperature 36.8 C 12/06/22 15:07 Temperature Source Tympanic 12/06/22 15:07 Pulse 77 12/06/22 15:07 Respiratory Rate 16 12/06/22 15:07 Respiratory Effort Normal 12/06/22 15:16 Respiratory Depth Normal 12/06/22 15:16 Respiratory Pattern Normal 12/06/22 15:16 Blood Pressure 120/62 12/06/22 15:07 Blood Pressure Position Sitting 12/06/22 15:07 Pulse Oximetry 99 12/06/22 15:07 Oxygen Delivery Method Room Air 12/06/22 15:07 Oxygen Flow Rate 0 12/06/22 15:07 Pain Level 6 12/06/22 15:07
[2022-12-06] MEDS: Clindamycin 150 MG CAP 450 MG PO (16:00)
[2022-12-06] MEDS: Ketorolac 15 MG/ML VIAL IM (16:01)
== END 2022-12-06 16:51 | disposition home or self-care (01) ==
PROVIDERS: Emergency Provider Emergency Medicine; PCP Family Medicine
DX: L03.113 Cellulitis of right upper limb (principal)
CPT/HCPCS: 96372; 99284; J1885

== ENCOUNTER 2022-12-09 14:34 | Emergency (ER) | payer MEDICAID, SELFPAY ==
--- NOTE | 2022-12-09 14:30 | RT.EKG_ITS ---
APPROVED REPORT Exam: Resting ECG Reason for Exam: near syncope Patient Location: E HR:72 bpm ECG Measurements Heart Rate 72 AXIS MO 144 P 49 QRSd 98 QRS 67 QT 384 T 50 QTc 419 Conclusion Sinus rhythm...normal P axis, V-rate 60- 99 sinus rhythm, normal axis, normal intervals, non ischemic
[2022-12-09 14:37] VITALS: BP 108/60; PULSE 82; RESP 18; TEMP 36.6; O2SAT 98
--- NOTE | 2022-12-09 14:46 | ED.GENADUL_ITS ---
Discharge Plan Disposition Patient Disposition: Home Condition: Improving Discharge Details Chief Complaint: RashLesion Clinical Impression: Near syncope Primary Care Provider: Antelmo Denney ED Provider: Kory Singh Home Meds and New Rx's Prescriptions: No Action venlafaxine 150 mg capsule,extended release 24hr 150 mg PO DAILY Patient Comments: TAKE 1 CAPSULE BY MOUTH EVERY MORNING clindamycin HCl 300 mg capsule 300 mg PO QID 10 Days Qty: 40 0RF levothyroxine 150 mcg tablet 150 mcg PO DAILY Patient Comments: Take 1 tablet by mouth once a day Take 1 tablet by mouth daily amoxicillin 500 mg capsule 500 mg PO Q8H Patient Comments: TAKE ONE CAPSUEL BY MOUTH EVERY 8 HOURS UNTIL GONE Discharge Instructions Instructions: Near Syncope (ED) Additional Instructions: Please follow with your primary care physician. Please return to the emergency department for any worsening symptoms. Continue take your medications as prescribed. Medical Decision Making 42-year-old female recent treatment for left forearm cellulitis presents with near syncopal episode/lightheadedness while standing for an extended period of time at work. Patient is afebrile nontoxic nontachycardic normotensive normoxic, no acute distress at this time however still feels slightly lightheaded. No chest pain. Resolved cellulitis of left forearm. Consider orthostatic versus vasovagal presyncope lower suspicion for ACS PE or serious bacterial infection, must assess for , will obtain basic labs, EKG, fluids Zofran rest close reassessment of symptoms 15: 27 patient resting comfortably no acute distress. Labs urinalysis urine and EKG unremarkable. Remains hemodynamically stable. Patient has an appointment to see her primary care physician on Sunday HPI General Date/Time Provider Initiated Documentation: 12/09/22 14:35 . HPI Narrative: 42-year-old female recently started on clindamycin for cellulitis of left forearm, has been taking medications as prescribed, cellulitis is improving, was standing at work for a long time today felt lightheaded. Related Data Home Medications Medication Instructions Recorded Confirmed venlafaxine 150 mg 150 mg PO DAILY 03/07/21 12/09/22 capsule,extended release 24 hr amoxicillin 500 mg capsule 500 mg PO Q8H 04/27/22 08/08/22 levothyroxine 150 mcg tablet 150 mcg PO DAILY 04/27/22 12/09/22 clindamycin HCl 300 mg capsule 300 mg PO QID 10 days #40 caps 12/06/22 12/09/22 Previous Rx's Medication Instructions Recorded clindamycin HCl 300 mg capsule 300 mg PO QID 10 days #40 caps 12/06/22 Allergies Allergy/AdvReac Type Severity Reaction Status Date / Time aspirin AdvReac Mild upset Unverified 12/09/22 14:39 stomach diazepam AdvReac vomiting/black Unverified 12/09/22 14:39 out hydrocodone AdvReac vomiting/b Unverified 12/09/22 14:39 lackout General Stated Complaint: RashLesion CORAL: 3 Review of Systems Narrative: Review of Systems Constitutional: negative Eyes: negative ENT: negative Cardiovascular: Lightheadedness Respiratory: negative Gastrointestinal: negative : negative Musculoskeletal: negative Skin: negative Neurologic: negative Psych: negative PFSH All Active Problems (Updated 12/09/22 @ 15:29 by Kory Singh MD) Cellulitis (Acute) Near syncope (Acute) Multinodular thyroid (Acute) Social History Smoking/Tobacco Use Status: Current every day Tobacco Type: cigarettes Smoking risk assessment performed?: Yes Alcohol Intake: current Alcohol Intake frequency: holidays/special occasions only Drug use: Never Substance use type: does not use Do you feel safe at home: Yes Do you feel safe in your relationship?: Yes Exam Narrative Exam Narrative: Physical Examination General: alert, awake, cooperative, resting comfortably, no acute distress HEENT: normocephalic, atraumatic; PERRL, EOM intact, conjunctiva normal; no nasal discharge; moist mucous membranes, oral and pharyngeal mucosa normal, tolerating secretions Neck: supple, trachea midline; full ROM Chest: normal to inspection Respiratory: normal respiratory effort, speaking in full sentences, clear to auscultation, no wheezing, rales or rhonchi Cardiac: regular rate, regular rhythm, S1S2 intact, no murmurs rubs or gallops GI: abdomen soft, non-tender, non-distended; no palpable mass or hepatosplenomegaly Skin: Cellulitis of left forearm largely resolved Neuro: AAOx3, normal speech, moving all extremities Extremities: Full range of motion no deformity Psych: Appropriate mood and affect Course Vital Signs Vital signs: Vital Signs Temperature 36.6 C 12/09/22 14:37 Pulse 82 12/09/22 14:37 Respiratory Rate 18 12/09/22 14:37 Blood Pressure 108/60 12/09/22 14:37 Pulse Oximetry 98 12/09/22 14:37 Temperature 36.6 C 12/09/22 14:37 Temperature Source Tympanic 12/09/22 14:37 Pulse 82 12/09/22 14:37 Respiratory Rate 18 12/09/22 14:37 Respiratory Effort Normal, Non-Labored 12/09/22 14:39 Blood Pressure 108/60 12/09/22 14:37 Pulse Oximetry 98 12/09/22 14:37 Oxygen Delivery Method Room Air 12/09/22 14:37 Oxygen Flow Rate 0 12/09/22 14:37
[2022-12-09] MEDS: Normal Saline 1,000 ML 1000 ML IV (14:53)
[2022-12-09] MEDS: Ondansetron 4 MG/2 ML VIAL IVP (14:54)
[2022-12-09 14:56] LABS: Abs Immature Grans 0.03 10^3/uL (0.0-0.06); Absolute Basophil Count 0.04 10^3/uL (0.0-0.2); Absolute Eosinophil Count 0.18 10^3/uL (0.0-0.7); Absolute Neutrophil Count 5.85 10^3/uL (1.2-6.7); Basophils % 0.4; Eosinophils % 1.8; HCT 43.7 % (36.0-46.0); HGB 14.7 g/dL (11.2-15.7); Immature Grans % 0.3; Lymphocytes % 33.3; MCH 32.4 pg (27.0-33.0); MCHC 33.6 % (32.0-36.0); MCV 96 fL (80-95); MPV 9.4 fL (8.0-11.0); Monocytes % 5.1; Neutrophils % 59.1; Platelet Count 306 10^3/uL (130-400); RBC 4.54 10^6/uL (3.93-5.22); RDW 12.2 % (11.7-14.6); RDW-SD 43.1 fL
[2022-12-09 15:09] LABS: Bilirubin Negative (Negative); Blood Trace-intact (Negative); Clarity Clear (Clear); Glucose Negative (Negative); Ketones Negative (Negative); Leukocyte Esterase Negative (Negative); Nitrite Negative (Negative); Urobilinogen 0.2 mg/dL (Up to 0.2); pH 6.5 (5-8)
[2022-12-09 15:14] LABS: ALT 36 U/L (14-59); AST 24 U/L (15-37); Albumin 3.8 g/dL (3.4-5.0); Alkaline Phosphatase 97 U/L (46-116); Anion Gap 10.3 mmol/L (3-11); BUN 15 mg/dL (7-18); Bilirubin, Total 0.3 mg/dL (0.2-1.0); CO2 25.7 mmol/L (21.0-32.0); Calcium 9.3 mg/dL (8.5-10.1); Chloride 103 mmol/L (98-107); Estimated GFR 73.04 (mL/min/1.73m2); Glucose 84 mg/dL (74-106); Potassium 3.8 mmol/L (3.5-5.1); Sodium 139 mmol/L (136-145); Total Protein 7.2 g/dL (6.4-8.2)
[2022-12-09 15:22] LABS: Bacteria Negative HPF (Negative); C & S Indicated? No; Casts Negative LPF (Negative); Crystals Negative HPF (Negative); Epithelial Cells Few HPF (Negative); Mucus Negative (Negative); Other Cells Negative (Negative); WBC 0-2 HPF (0-5)
[2022-12-09 15:37] VITALS: PULSE 65; RESP 16; O2SAT 100
== END 2022-12-09 15:38 | disposition home or self-care (01) ==
PROVIDERS: Emergency Provider Emergency Medicine; PCP Family Medicine
DX: R55 Syncope and collapse (principal); L03.114 Cellulitis of left upper limb
CPT/HCPCS: 80053; 81025; 93005; 96361; 96374; 99284; 81003; 81015; 85025; 93010; J2405

== ENCOUNTER 2023-02-15 10:09 | Emergency (ER) | payer MEDICAID, SELFPAY ==
[2023-02-15 10:13] VITALS: BP 117/62; PULSE 80; RESP 16; TEMP 36.6; O2SAT 97
--- NOTE | 2023-02-15 10:30 | DI.CT_ITS ---
Exam(s) CT LUMBAR SPINE W EXAM: CT LUMBAR SPINE W CLINICAL HISTORY: Significant low back pain. TECHNIQUE: Imaging Protocol: Axial computed tomography images with coronal and sagittal reformatted images were created and reviewed COMPARISON: No exams were available for comparison FINDINGS: Incidental: Mild pleural based increased markings are noted in the posterior basal segment of the rig ht lower lobe which is partially included in the field of view of this study. Bones: There are no fractures, listhesis, nor pars defects. There are no lytic osseous lesions evide nt.There is chronic disc space narrowing at L5-S1 level and vacuum phenomenon seen within the disc sp kashif at this level. Sclerotic benign bone island is noted in the anterior aspect of the L5 vertebral body. INDIVIDUAL LEVELS: T12-L1:No disc herniation nor canal stenosis. Facet joints unremarkable. No foraminal stenosis. L1-2: No disc herniation nor canal stenosis. Facet joints unremarkable. No foraminal stenosis. L2-3: No disc herniation nor canal stenosis. Facet joints unremarkable. No Foraminal stenosis L3-4: No disc herniation nor canal stenosis. Facet joints unremarkable. No foraminal stenosis. L4-5: Mild annular bulging without a dominant disc herniation. Central canal dimensions lower francisco l. No significantzx facet arthropathy. No significant foraminal stenosis. L5-S1: Advanced disc space narrowing evident at this level as well as vacuum phenomenon within the d isc space. There is is central subligamentous annular bulge. No prominent disc herniation or centra l canal stenosis. Mild facet degenerative changes. There is an element of bilateral vertical forami nal stenosis here. Sacroiliac joints: Mild symmetrical increased density both sides SI joints. No ankylosis. No signif icant lesions in the sacrum appear. PARASPINAL SOFT TISSUES: Visualized paraspinal tissues appear unremarkable. IMPRESSION: 1. Advanced disc space narrowing at L5-S1 level. Mild annular bulging at this level. No prominent d isc herniation. No central canal stenosis. 2. There is bilateral vertical foraminal stenosis at L5-S1 level. There is impingement of the exitin g nerve roots bilaterally within the exiting neural foramina at this level. This is related to the a dvanced disc height loss at the L5-S1 level. 3. Mild increased density around both sacroiliac joints. cannot exclude element of sacroiliitis. T here is no ankylosis of the sacroiliac joints. Called by myself to ER provider. RADIATION DOSE DELIVERED: 934.69mGy.cm Total DLP DATA REPOSITORY: All CT scans at this facility are submitted to the National Radiology Data Registry (NRDR) Dose Index Registry (DIR) with the [employer] (A[employer]). RADIATION OPTIMIZATION: All CT scans at this facility use at least one of these dose optimization te chniques: automated exposure control; mA and/or kV adjustment per patient size (includes targeted exa ms where dose is matched to clinical indication); or iterative reconstruction.
[2023-02-15] MEDS: Ketorolac 15 MG/ML VIAL IVP (10:56)
--- NOTE | 2023-02-15 10:57 | ED.GENADUL_ITS ---
Discharge Plan Disposition Patient Disposition: Home Discharge Details Clinical Impression: Back pain Primary Care Provider: Antelmo Denney ED Provider: Neo Whitfield Home Meds and New Rx's Prescriptions: New ketorolac 10 mg tablet 10 mg PO TID PRNQty: 15 0RF Continued cyclobenzaprine 10 mg tablet 10 mg PO TID PRN (Reason: muscle spasm) Qty: 5 0RF venlafaxine 150 mg capsule,extended release 24hr 150 mg PO DAILY Patient Comments: TAKE 1 CAPSULE BY MOUTH EVERY MORNING levothyroxine 150 mcg tablet 150 mcg PO DAILY Patient Comments: Take 1 tablet by mouth once a day Take 1 tablet by mouth daily amoxicillin 500 mg capsule 500 mg PO Q8H Patient Comments: TAKE ONE CAPSUEL BY MOUTH EVERY 8 HOURS UNTIL GONE Discharge Instructions Instructions: Back Pain (ED) Additional Instructions: You may perform activities as tolerated it is recommended to avoid heavy lifting, bending, or twisting type motions. If you develop new or significant worsening of symptoms or red flag symptoms as discussed please return immediately to the emergency department for reassessment. If not improving in the next 1 to 2 weeks please follow with your primary care provider for recheck of symptoms. You may continue to use acetaminophen along with the prescribed ketorolac and muscle relaxer. Please avoid any NSAIDs including aspirin, Motrin Aleve or ibuprofen as this may cause complications with your prescribed Toradol. Stand Alone Forms: Work Release Referrals: Antelmo Denney MD [Primary Care Provider] - 1 week Discharge Data Discharge Date/Time-TO BE ENTERED AT DEPARTURE: 02/15/23 12:34 Medical Decision Making Patient presenting to the emergency department for chief complaint of severe back pain. Patient states 7 days ago she started having lower back pain. Denies any injury or trauma or known event to cause back pain but back pain has worsened over the past week. Patient reports that most of her back pain is in her lower spine/coccyx. Patient was seen in urgent care yesterday and prescribed muscle relaxers which she was not able to fill. She has been using acetaminophen but pain is only worsening. Patient denies fever chills numbness tingling but does report some radiation of pain down right leg. Physical exam shows significant tenderness to palpation of coccyx. No signs of abscess, slight tenderness to lumbar spine patient with inability to even tolerate seated position. I do feel this would be odd for lumbar or soft tissue strain or even herniated disc given patient is most tender again over coccyx. We will plan on treating patient's pain, checking basic labs and doing CT imaging with contrast to better evaluate the spine. Reviewed patient's labs and patient has completely normal CBC and CMP along with urinalysis. We will proceed with CT imaging. Of note ketorolac did si gnificantly help patient's pain to where she was able to at least lie flat. Reviewed CT imaging and radiologist interpretation that shows some changes to L5-S1 which may explain radiation of pain but no obvious findings within the coccyx or lower sacrum. We will place patient on p.o. ketorolac and she will continue to use muscle relaxers already prescribed to her as needed. Patient otherwise follow-up with primary care provider if not improving. After discussion of diagnosis and plan of care patient has no further needs, questions, or concerns and states clear understanding to return to the emergency department for any worsening symptoms. This documentation was generated using [employer] dictation system, please disregard any oddities of phrase or misspellings. Imaging Data Radiologic Study: Attestation: I personally reviewed and interpreted this imaging study as follows: Imaging: CT Scan Radiologist's impression: Exam(s) CT LUMBAR SPINE W EXAM: CT LUMBAR SPINE W CLINICAL HISTORY: Significant low back pain. TECHNIQUE: Imaging Protocol: Axial computed tomography images with coronal and sagittal reformatted images were created and reviewed COMPARISON: No exams were available for comparison FINDINGS: Incidental: Mild pleural based increased markings are noted in the posterior basal segment of the right lower lobe which is partially included in the field of view of this study. Bones: There are no fractures, listhesis, nor pars defects. There are no lytic osseous lesions evident.There is chronic disc space narrowing at L5-S1 level and vacuum phenomenon seen within the disc space at this level. Sclerotic benign bone island is noted in the anterior aspect of the L5 vertebral body. INDIVIDUAL LEVELS: T12-L1:No disc herniation nor canal stenosis. Facet joints unremarkable. No foraminal stenosis. L1-2: No disc herniation nor canal stenosis. Facet joints unremarkable. No foraminal stenosis. L2-3: No disc herniation nor canal stenosis. Facet joints unremarkable. No Foraminal stenosis L3-4: No disc herniation nor canal stenosis. Facet joints unremarkable. No foraminal stenosis. L4-5: Mild annular bulging without a dominant disc herniation. Central canal dimensions lower normal. No significantzx facet arthropathy. No significant foraminal stenosis. L5-S1: Advanced disc space narrowing evident at this level as well as vacuum phenomenon within the disc space. There is is central subligamentous annular bulge. No prominent disc herniation or central canal stenosis. Mild facet degenerative changes. There is an element of bilateral vertical foraminal stenosis here. Sacroiliac joints: Mild symmetrical increased density both sides SI joints. No ankylosis. No significant lesions in the sacrum appear. PARASPINAL SOFT TISSUES: Visualized paraspinal tissues appear unremarkable. IMPRESSION: 1. Advanced disc space narrowing at L5-S1 level. Mild annular bulging at this level. No prominent disc herniation. No central canal stenosis. 2. There is bilateral vertical foraminal stenosis at L5-S1 level. There is impingement of the exiting nerve roots bilaterally within the exiting neural foramina at this level. This is related to the advanced disc height loss at the L5-S1 level. 3. Mild increased density around both sacroiliac joints. cannot exclude element of sacroiliitis. There is no ankylosis of the sacroiliac joints. HPI General Mode of arrival: ambulatory . Date/Time Provider Initiated Documentation: 02/15/23 10:11 . Limitations to Documentation: no limitations . Information obtained by: patient and RN notes reviewed . History of Present Illness 42 year old F presents to the emergency department with the chief complaint of back pain , described as moderate and severe, with intensity rated at 9. Quality is described as sharp, and is localized to the back. Patient extremity. Patient started experiencing this day(s) (7) and it has been constant. No relieving factors improve symptom(s), Patient notes no other symptoms.. Patient did receive the following treatments prior to arrival, other (Acetaminophen) Related Data Home Medications Medication Instructions Recorded Confirmed venlafaxine 150 mg 150 mg PO DAILY 03/07/21 02/14/23 capsule,extended release 24 hr amoxicillin 500 mg capsule 500 mg PO Q8H 04/27/22 02/14/23 levothyroxine 150 mcg tablet 150 mcg PO DAILY 04/27/22 02/14/23 cyclobenzaprine 10 mg tablet 10 mg PO TID PRN muscle spasm #5 02/14/23 02/14/23 tabs ketorolac 10 mg tablet 10 mg PO TID PRN #15 tabs 02/15/23 Previous Rx's Medication Instructions Recorded cyclobenzaprine 10 mg tablet 10 mg PO TID PRN muscle spasm #5 02/14/23 tabs ketorolac 10 mg tablet 10 mg PO TID PRN #15 tabs 02/15/23 Allergies Allergy/AdvReac Type Severity Reaction Status Date / Time aspirin AdvReac Mild upset Unverified 02/14/23 16:56 stomach diazepam AdvReac vomiting/black Unverified 02/14/23 16:56 out hydrocodone AdvReac vomiting/b Unverified 02/14/23 16:56 lackout General Stated Complaint: Nk/Back Pain CORAL: 3 Review of Systems Constitutional Constitutional: Denies chills and Denies fever(s) Cardiovascular Cardiovascular: Denies chest pain and Denies dyspnea on exertion Respiratory Respiratory: Denies cough and Denies dyspnea on exertion Gastrointestinal Gastrointestinal: Denies abdominal pain, Denies change in bowel habits, Denies diarrhea, Denies nausea and Denies vomiting Genitourinary Genitourinary: Denies urinary incontinence Musculoskeletal Musculoskeletal: Reports as per HPI and Reports back pain Neurologic Neurologic: Denies sensory deficit PFSH All Active Problems (Updated 02/15/23 @ 12:24 by Neo Whitfield NP) Back pain (Acute) Multinodular thyroid (Acute) Social History Smoking/Tobacco Use Status: Current every day Tobacco Type: cigarettes Smoking risk assessment performed?: Yes Alcohol Intake: current Alcohol Intake frequency: holidays/special occasions only Drug use: Never Substance use type: does not use Do you feel safe at home: Yes Do you feel safe in your relationship?: Yes Exam Const General: cooperative and no acute distress Orientation: alert, awake and oriented x3 Neck Neck: normal visual inspection, full ROM and no meningeal signs Resp Effort & Inspection: normal respiratory effort Auscultation: clear to auscultation bilaterally Cardio Rate: regular rate Rhythm: regular rhythm Heart Sounds: S1 normal and S2 normal GI Inspection: obesity Back/Spine/Pelvis Thoracic/Lumbar Spine: thoracic and lumbar spine normal to inspection, pain with thoraco-lumbar ROM, thoraco-lumbar ROM limited, No thoracic spinal tenderness and lumbar spinal tenderness Pelvis: no pain with anterior-posterior compression, no pain with lateral compression, buttock tenderness on the right and sciatic notch tenderness on the right Sacrum: tenderness midline Coccyx: tenderness on direct palpation Neuro General: patient alert, patient awake and patient oriented x3 Course Vital Signs Vital signs: Vital Signs Temperature 36.6 C 02/15/23 10:13 Pulse 80 02/15/23 10:13 Respiratory Rate 16 02/15/23 10:13 Blood Pressure 117/62 02/15/23 10:13 Pulse Oximetry 97 02/15/23 10:13 Temperature 36.6 C 02/15/23 10:13 Temperature Source Oral 02/15/23 10:13 Pulse 80 02/15/23 10:13 Respiratory Rate 16 02/15/23 10:13 Respiratory Effort Normal 02/15/23 10:35 Blood Pressure 117/62 02/15/23 10:13 Blood Pressure Position Standing 02/15/23 10:13 Pulse Oximetry 97 02/15/23 10:13 Oxygen Delivery Method Room Air 02/15/23 10:13 Oxygen Flow Rate 0 02/15/23 10:13 Pain Level 10 02/15/23 10:13 Comment taking 1G tylenol at 0700 today 02/15/23 10:13
[2023-02-15 11:01] LABS: Abs Immature Grans 0.01 10^3/uL (0.0-0.06); Absolute Basophil Count 0.03 10^3/uL (0.0-0.2); Absolute Eosinophil Count 0.09 10^3/uL (0.0-0.7); Absolute Lymphocyte Count 2.34 10^3/uL (1.2-3.4); Absolute Monocyte Count 0.37 10^3/uL (0.1-0.8); Absolute Neutrophil Count 3.54 10^3/uL (1.2-6.7); Basophils % 0.5; Eosinophils % 1.4; HCT 45.2 % (36.0-46.0); HGB 15.5 g/dL (11.2-15.7); Immature Grans % 0.2; Lymphocytes % 36.7; MCH 32.6 pg (27.0-33.0); MCHC 34.3 % (32.0-36.0); MCV 95 fL (80-95); MPV 9.1 fL (8.0-11.0); Monocytes % 5.8; Neutrophils % 55.4; Platelet Count 299 10^3/uL (130-400); RBC 4.76 10^6/uL (3.93-5.22); RDW 12.2 % (11.7-14.6); RDW-SD 42.9 fL; WBC 6.38 10^3/uL (4.4-10.8)
[2023-02-15 11:14] LABS: Bilirubin Negative (Negative); Blood Negative (Negative); Clarity Clear (Clear); Glucose Negative (Negative); Ketones Negative (Negative); Leukocyte Esterase Negative (Negative); Nitrite Negative (Negative); Urobilinogen 0.2 mg/dL (Up to 0.2)
[2023-02-15 11:15] LABS: ALT 59 U/L (14-59); AST 33 U/L (15-37); Albumin 3.8 g/dL (3.4-5.0); Alkaline Phosphatase 91 U/L (46-116); Anion Gap 7.3 mmol/L (3-11); BUN 13 mg/dL (7-18); Bilirubin, Total 0.5 mg/dL (0.2-1.0); CO2 23.7 mmol/L (21.0-32.0); CREATININE 0.8 mg/dL (0.55-1.02); Chloride 106 mmol/L (98-107); Estimated GFR 95.46 (mL/min/1.73m2); Glucose 100 mg/dL (74-106); Magnesium 1.9 mg/dL (1.8-2.4); Potassium 4.2 mmol/L (3.5-5.1); Sodium 137 mmol/L (136-145); Total Protein 7.5 g/dL (6.4-8.2)
[2023-02-15] MEDS: Omnipaque 350 MG/ML 100 ML BTL IJ (11:21)
[2023-02-15] MEDS: Normal Saline - Diluent 50 ML VIAL IJ (11:22)
== END 2023-02-15 12:34 | disposition home or self-care (01) ==
PROVIDERS: Emergency Provider Nurse Practitioner Family; PCP Family Medicine
DX: M54.50 Low back pain, unspecified (principal)
CPT/HCPCS: 80053; 96374; 99282; 72132; 81003; 83735; 85025; 99283; J1885; J3490